=== PATIENT | female | born 1975 | race Hispanic/Latino ===

== ENCOUNTER → 2018-12-12 | Day surgery (SDC) | payer BC ==
[2018-12-11 11:22] LABS: BASOPHILS # (AUTO) 0.1 (0.0-0.1); BASOPHILS % 0.8 % (0.0-1.0); EOSINOPHILS # (AUTO) 0.1 (0.0-0.4); HEMATOCRIT 37.5 % (34.2-44.1); HEMOGLOBIN 12.8 g/dL (12.0-16.0); LYMPHOCYTES # (AUTO) 1.9 (1.0-3.2); LYMPHOCYTES % 30.9 % (18.0-39.1); MEAN CORPUSCULAR HEMOGLOBIN 30.6 pg (28-32); MEAN CORPUSCULAR HGB CONC 34.1 g/dL (31-35); MEAN CORPUSCULAR VOLUME 89.7 fL (81-99); MONOCYTES # (AUTO) 0.6 (0.2-0.8); MONOCYTES % 9.6 % (4.4-11.3); NEUTROPHILS # (AUTO) 3.4 (2.1-6.9); NEUTROPHILS % 55.9 % (38.7-80.0); PLATELET COUNT 261 x10e3/uL (140-360); RED BLOOD COUNT 4.18 x10e6/uL (3.6-5.1); RED CELL DISTRIBUTION WIDTH 12.2 % (11.7-14.4)
[~2018-12-12] MED LIST: DICYCLOMINE HCL20 MG PO; FENTANYL CITRATE/PF 100MCG/2 ML INJ ONE; KETAMINE HCL INJ 50 MG/ML 10 ML VIAL ONE; LIDOCAINE HCL 2% LOCAL INJ 5 ML SDV VIAL INJ ONE; METOCLOPRAMIDE HCL 10 MG/2ML VIAL ONE; METOPROLOL SUCC25 MG PO; PROPOFOL IV EMULSION 10 MG/ML 50 ML VIAL ONE; TRIAMTERENE-HCTZ1 EA PO; TYLENOL EXTRA500 MG PO
[2018-12-12 11:00] VITALS: BP 110/75
--- NOTE | 2018-12-12 11:23 | Operative Report ---
DATE OF PROCEDURE: 12/12/2018 SURGEON: Fidencio Melton MD PROCEDURE: Esophagogastroduodenoscopy with biopsies. INDICATIONS FOR EGD: Upper abdominal pain, retrosternal chest pain. MEDICATIONS: The patient was done under MAC, please see anesthesiologist's note. PROCEDURE IN DETAIL: With the patient in left lateral decubitus position, flexible fiberoptic Olympus gastroscope was introduced into the esophagus under direct visualization without any difficulty. There was some patchy erythema noted in distal esophagus. Minute tongues of velvety red mucosa were noted to extend proximally from the GE junction. Biopsies were obtained to rule out Erickson's. The scope was then advanced with ease into the stomach. The patient appears to have a J-shaped stomach. Mucosa overlying the antrum and the body revealed some patchy erythema and low-grade to moderate edema and biopsies were obtained and sent to stain for H pylori. Pylorus was of normal contour and shape, it was intubated with ease and the scope was advanced all the way to the second portion of the duodenum. There was a minute nodule noted in the proximal second portion that was biopsied. A focally raised area in the proximal second portion proximal into the ampulla could not be well delineated with forward-viewing scope. Biopsies were obtained. It could possibly represent hypertrophied accessory papilla but for more optimal visualization a side-viewing scope would be indicated. Biopsies were obtained from the proximal second portion and duodenal bulb to rule out sprue. The scope was then withdrawn back into the stomach and retroflexed and an intact lap band was noted. The scope was then straightened out, it was subsequently withdrawn. The patient tolerated the procedure well. IMPRESSION: 1. Mild distal esophagitis. 2. Rule out Erickson esophagus. 3. Status post lap band, intact. 4. Gastritis, biopsied. Biopsies sent to stain for Helicobacter pylori. 5. Minute nodule, proximal second portion, biopsied. 6. Rule out hypertrophied accessory papilla. 7. Rule out sprue. PLAN: Follow up histology. Increase Protonix to 40 mg one p.o. a.c. b.i.d. Fidencio Melton MD [facility] [place]/MODL /[id number]
--- OUTSIDE RECORDS SUMMARY | 2018-12-14 13:33 | XMS REPORT ---
Author [facility] Address Unknown Phone Unavailable Care Team Providers Care Tubing Drier Name Role Phone Irma Vidal Unavailable Unavailable Payers Payer Name Policy Type Policy Number Effective Date Expiration Date Problems This patient has no known problems. Allergies, Adverse Reactions, Alerts Allergy Name Allergy Type Status Severity Reaction(s) Onset Date Inactive Date Treating Clinician Comments hydrocodone DA Active AR 2018-10-16 00:00:00 acetaminophen DA Active AR 2018-10-16 00:00:00 CODEINE DA Active U 2003-09-29 00:00:00 No Known Contrast Allergies DA Active U 2003-09-29 00:00:00 No Known Food Allergies DA Active U 2003-09-29 00:00:00 No Known Other Allergies DA Active U 2003-09-29 00:00:00 Medications This patient has no known medications. Results Test Description Test Time Test Comments Text Results Atomic Results Result Comments PROTHROMBIN TIME 2018-10-16 16:38:00 PROTHROMBIN TIME PATIENT (test code=PTP) 11.1 SECONDS 9.3-12.9 INTERNATIONAL NORMAL RATIO (test code=INR) 1.0 0.8-1.2 TARGET INR BY INDICATION Indication INR1. Prophylaxis of venous thrombosis 2.0 - 3.0 (orthopedic surgery), Prophylaxis of venous thrombosis (other than high-risk surgery), Treatment of Deep Vein Thrombosis/Pulmonary Embolism, Prevention of systemic embolism - Tissue heart valves, Acute Myocardial Infarction (to prevent systemic embolism), Valvular heart disease, Atrial Fibrillation, Bileaflet mechanical valve in aortic position.2. Mechanical prosthetic valves (high risk), 2.5 - 3.5 Presence of Lupus Anticoagulant or Antiphospholipid Antibodies, Prevention of systemic embolism - Acute Myocardial Infarction (to prevent recurrent infarct). - XR CHEST 2 [id number] 16:28:00 FAX: Manjinder Garcia [phone] [place]: St: PRE Name: HUGH VERAS [facility] : [birth year] 72 Age/S: 43/F [address] [place], [place] [address]vd Unit #: [id number] Loc: [place] [address] Phys: Manjinder Alves MD Acct: [id number] Dis Date: Status: PRE SDC PHONE #: [phone] Exam Date: 10/16/2018 163 FAX #: [phone] Reason: SVT EXAMS: CPT CODE: [id number] XR CHEST 2 V [id number] PROCEDURE: CHEST TWO VIEW INDICATION: Supraventricular tachycardia. COMPARISON: None. FINDINGS: Cardiovascular: Normal cardiac silhouette. Normal thoracic aorta. Mediastinum: No mediastinal or hilar lym phadenopathy. Lungs: No focal consolidation. No parenchymal mass. Pleura: No pleural effusion. No pneumothorax. Bone s: No acute osseous abnormality. Degenerative changes of the thoracic spi ne. IMPRESSION: No acute radiographic abnorma lity. SL: [id number] at 2528 Reported and goyo d by: Oskar Song M.D. CC: Manjinder Shepherd MD Technologist: RT Godwin(Margaux) Trnscrd Date/Time/By: 10/16/2018 ([id number]) : By: [email or web address] Orig P rint D/T: S: 10/16/2018 (6940) PAGE 1 Signed Report BASIC METABOLIC [id number] 16:20:00* Test Item Value Reference Range Comments SODIUM (test code=NA) 136 mEq/L 134-147 POTASSIUM (test code=K) 3.7 mEq/L 3.4-5.0 CHLORIDE (test code=CL) 106 mEq/L 100-108 CARBON DIOXIDE (test code=CO2) 23 mEq/L 21-33 ANION GAP (test code=GAP) 11 0-20 GLUCOSE (test code=GLU) 102 mg/dL 70-110 BLOOD UREA NITROGEN (test code=BUN) 15 mg/dL 7-18 GLOMERULAR FILTRATION RATE (test code=GFR) 108.1 95-105 Units of measure=ml/min/1.73 m2 CREATININE (test code=CREAT) 0.6 mg/dL 0.6-1.3 CALCIUM (test code=CA) 8.5 mg/dL 8.0-10.5 CBC W/AUTO [id number] 16:10:00* Test Item Value Reference Range Comments WHITE BLOOD CELL (test code=WBC) 7.29 x10 3/uL 4.5-11.0 RED BLOOD CELL (test code=RBC) 4.12 x10 6/uL 3.54-5.02 HEMOGLOBIN (test code=HGB) 12.5 g/dL 11.0-15.0 HEMATOCRIT (test code=HCT) 37.4 % 33.0-45.0 MEAN CELL VOLUME (test code=MCV) 90.8 fL 81.0-99.0 MEAN CELL HGB (test code=MCH) 30.3 pg 27.0-33.0 MEAN CELL HGB CONCETRATION (test code=MCHC) 33.4 g/dL 33.0-37.0 RED CELL DISTRIBUTION WIDTH CV (test code=RDW) 12.0 % 11.5-14.5 RED CELL DISTRIBUTION WIDTH SD (test code=RDW-SD) 39.8 fL 37.0-54.0 PLATELET COUNT (test code=PLT) 249 x10 3/uL 150-400 MEAN PLATELET VOLUME (test code=MPV) 11.7 fL 7.0-9.0 NEUTROPHIL % (test code=NT%) 55.5 % 56.0-77.0 IMMATURE GRANULOCYTE % (test code=IG%) 0.4 % 0.0-2.0 LYMPHOCYTE % (test code=LY%) 32.5 % 14.0-32.0 MONOCYTE % (test code=MO%) 8.2 % 4.8-9.0 EOSINOPHIL % (test code=EO%) 2.9 % 0.3-3.7 BASOPHIL % (test code=BA%) 0.5 % 0.0-2.0 NUCLEATED RBC % (test code=NRBC%) 0.0 % 0-0 NEUTROPHIL # (test code=NT#) 4.04 x10 3/uL 2.0-7.6 IMMATURE GRANULOCYTE # (test code=IG#) 0.03 x10 3/uL 0.00-0.03 LYMPHOCYTE # (test code=LY#) 2.37 x10 3/uL 1.0-3.8 MONOCYTE # (test code=MO#) 0.60 x10 3/uL 0.1-0.8 EOSINOPHIL # (test code=EO#) 0.21 x10 3/uL 0.0-0.2 BASOPHIL # (test code=BA#) 0.04 x10 3/uL 0.0-0.2 NUCLEATED RBC # (test code=NRBC#) 0.00 x10 3/uL 0.0-0.1 MANUAL DIFF REQUIRED (test code=MDIFF) NO CT PELVIS [id number] 10:36:22CLINICAL INDICATION: R10.2 Pelvic and perineal painMODALITY: Drone[employer] Supria [address] (Iterative dose reduction technique is used).TECHNIQUE: Helical imaging of the pelvis is performed without and with IV contrast. Oral contrast is administered. 90 mls optiray 300 are administered IV. Computed Tomography Dose Index: 49 mGy.IMPRESSION:Hysterectomy. Otherwise unremarkable CT pelvis. FINDIN GS:COMPARISON: NoneThe rectum and visualized bowel is unremarkable. Normal macario endix.The urinary bladder and distal ureters are unremarkable.The uterus is abse nt. The ovaries are unremarkable. No suspicious adnexal masses.No pelvic ascites is noted. No pelvic lymphadenopathy is evident.No evidence of inguinal hernia.No lytic or blastic osseous lesions are observed.PQRS 436: [id number] (For official use only.)
== END | disposition home or self-care (01) ==
LOC: OR 08:11
PROVIDERS: ATTEND Internal Medicine Gastroenterology
DX: K29.80 Duodenitis without bleeding (principal); K20.9 Esophagitis, unspecified; K29.70 Gastritis, unspecified, without bleeding; R10.13 Epigastric pain; Z98.84 Bariatric surgery status; R07.2 Precordial pain; Z87.19 Personal history of other diseases of the digestive system; Z86.010 Personal history of colon polyps; R03.0 Elevated blood-pressure reading, without diagnosis of hypertension; Z68.41 Body mass index [BMI] 40.0-44.9, adult; Z88.6 Allergy status to analgesic agent; Z88.5 Allergy status to narcotic agent; Z01.810 Encounter for preprocedural cardiovascular examination; Z01.812 Encounter for preprocedural laboratory examination
CPT/HCPCS: 36415; 43239; 85025; 93005; J2001; J2704; J2765; J3010

== ENCOUNTER → 2021-06-09 | Day surgery (SDC) | payer BC ==
[2021-06-07 08:53] LABS: BASOPHILS % 0.6 % (0.0-1.0); EOSINOPHILS # (AUTO) 0.2 (0.0-0.4); EOSINOPHILS % 3.6 % (0.0-6.0); HEMATOCRIT 38.3 % (34.2-44.1); HEMOGLOBIN 12.2 g/dL (12.0-16.0); LYMPHOCYTES # (AUTO) 1.9 (1.0-3.2); LYMPHOCYTES % 40.6 % (18.0-39.1); MEAN CORPUSCULAR HEMOGLOBIN 29.3 pg (28-32); MEAN CORPUSCULAR HGB CONC 31.9 g/dL (31-35); MEAN CORPUSCULAR VOLUME 91.8 fL (81-99); MONOCYTES # (AUTO) 0.4 (0.2-0.8); MONOCYTES % 8.2 % (4.4-11.3); NEUTROPHILS # (AUTO) 2.2 (2.1-6.9); NEUTROPHILS % 46.8 % (38.7-80.0); PLATELET COUNT 211 x10e3/uL (140-360); RED BLOOD COUNT 4.17 x10e6/uL (3.6-5.1); RED CELL DISTRIBUTION WIDTH 12.2 % (11.7-14.4)
[~2021-06-09] MED LIST changes: +ESMOLOL HCL 100MG/10ML 10 MG/ML VIAL ONE; +GLUCAGON FOR INJ 1 MG VIAL ONE; +HYOSCYAMINE SULFATE 0.5 MG/ML INJ ONE; -KETAMINE HCL INJ 50 MG/ML 10 ML VIAL ONE; -METOCLOPRAMIDE HCL 10 MG/2ML VIAL ONE; +MULTI-VITAMIN1 EACH PO; +PROPOFOL IV EMULSION 10 MG/ML 20 ML VIAL ONE; -PROPOFOL IV EMULSION 10 MG/ML 50 ML VIAL ONE; +VITAMIN C500 M1 PO; +VITAMIN D310 MCG PO
[2021-06-09 16:10] VITALS: BP 113/75
== END | disposition home or self-care (01) ==
LOC: OR 11:09
PROVIDERS: ATTEND Internal Medicine Gastroenterology
DX: K29.00 Acute gastritis without bleeding (principal); K29.80 Duodenitis without bleeding; K63.89 Other specified diseases of intestine; K63.5 Polyp of colon; K52.9 Noninfective gastroenteritis and colitis, unspecified; K64.8 Other hemorrhoids; G47.33 Obstructive sleep apnea (adult) (pediatric); F41.9 Anxiety disorder, unspecified; Z86.010 Personal history of colon polyps; Z01.810 Encounter for preprocedural cardiovascular examination; Z01.812 Encounter for preprocedural laboratory examination; Z20.822 Contact with and (suspected) exposure to COVID-19
CPT/HCPCS: 36415; 43239; 43450; 45380; 85025; 93005; C9113; J1610; J1980; J2001; J2704; J3010; U0002; 45378

== ENCOUNTER → 2022-09-07 | Day surgery (SDC) | payer BC ==
[~2022-09-07] MED LIST changes: -ESMOLOL HCL 100MG/10ML 10 MG/ML VIAL ONE; -FENTANYL CITRATE/PF 100MCG/2 ML INJ ONE; -GLUCAGON FOR INJ 1 MG VIAL ONE; -HYOSCYAMINE SULFATE 0.5 MG/ML INJ ONE; +MIDAZOLAM HCL 5 MG/ML VIAL ONE; +MIRALAX17 GM PO
[2022-09-07 16:00] VITALS: BP 111/84
== END | disposition home or self-care (01) ==
LOC: OR 11:48
PROVIDERS: ATTEND Internal Medicine Gastroenterology
DX: K29.50 Unspecified chronic gastritis without bleeding (principal); K63.5 Polyp of colon; K20.90 Esophagitis, unspecified without bleeding; K44.9 Diaphragmatic hernia without obstruction or gangrene; K63.89 Other specified diseases of intestine; K57.30 Diverticulosis of large intestine without perforation or abscess without bleeding; K59.09 Other constipation; K64.4 Residual hemorrhoidal skin tags; K64.8 Other hemorrhoids; Z98.84 Bariatric surgery status; Z71.3 Dietary counseling and surveillance; Z88.6 Allergy status to analgesic agent; Z68.36 Body mass index [BMI] 36.0-36.9, adult
CPT/HCPCS: 43239; 43450; 45380; C9113; J2001; J2250; J2704; 45378